=== PATIENT | female | born 1990 | race Caucasian/White ===

== ENCOUNTER 2020-06-09 07:14 | Inpatient (IN) | payer MEDICAID ==
[2020-06-09] MEDS ORDERED: Misoprostol 50 MCG (1/2 of 100 MCG) Tab VAG ONE ×3 (07:23→12:15)
[2020-06-09] MEDS ORDERED: Sodium Chloride 0.9% 10 ML Syringe FLUSH PRN (08:03)
[2020-06-09] MEDS ORDERED: fentaNYL 100 MCG/2 ML SDV IVPUSH PRN (08:03)
[2020-06-09] MEDS ORDERED: ePHEDrine 50 MG/ML SDV IVPUSH PRN (08:03)
[2020-06-09] MEDS ORDERED: Lactated Ringers 1,000 ML IV ONE (08:03)
--- NOTE | 2020-06-09 08:21 | PCM.LDHP ---
L&D History of Present Illness - General Date of Service: 06/09/20 (induction at term) Admit Problem/Dx: Patient Status Order with Admit Dx/Problem 06/09/20 08:03 Patient Status [ADT] Routine Admission Diagnosis/Problem Admission Diagnosis/Problem Source of Information: Patient History Limitations: Reports: No Limitations - History of Present Illness Introduction:: 30 year old who is 40 weeks based on LMP and US. scan equaled dates at 20 weeks. She an positive antigen and her has this antigen, no further testing was required. All babies have been induced, history of shoulder dystocia, low pelvic arch. Lab: GBS neg ABO A pos HIV neg Rubella immune hgb 11.9 PLT 242 - Related Data Allergies/Adverse Reactions: Allergies Allergy/AdvReac Type Severity Reaction Status Date / Time No Known Allergies Allergy Verified 06/09/20 07:29 Home Medications: Home Meds Omeprazole 20 mg PO DAILY 06/09/20 [History] 95/Iron Fum/Folic/Dha [ + Dha Combo Pack] 1 tab PO DAILY 06/09/20 [History] Past Medical History [employer] History: Reports: : 4 Para: 3 LMP (Approximate): (TANISHA 06/09/20) H&P Review of Systems - Review of Systems: Review Of Systems: See Below General: Reports: No Symptoms HEENT: Reports: No Symptoms Pulmonary: Reports: Cough (has she coughs so she doesn't vomit, I'm concerned about viral exposure) Cardiovascular: Reports: No Symptoms Gastrointestinal: Reports: Nausea Genitourinary: Reports: No Symptoms Musculoskeletal: Reports: No Symptoms Skin: Reports: No Symptoms Psychiatric: Reports: Depression, Anxiety Neurological: Reports: No Symptoms Hematologic/Lymphatic: Reports: No Symptoms Immunologic: Reports: No Symptoms L&D Exam - Exam Exam: See Below - OB Specific Contraction Frequency (min): irregular Contraction Intensity: Mild Movement: Active Heart Tones: Present Heart Rate (FHR) Variability: Moderate (6-25 bmp) Presentation: Vertex Estimated Weight: 8 pounds - Farrar Score Farrar Score Cervix Position: Anterior Farrar Score Consistency: Soft Farrar Score Effacement: 51-70% Farrar Score Dilation: 1-2 cm Farrar Score Infant's Station: -2 Farrar Score Total: 8 - Exam General: Alert, Oriented HEENT: PERRLA Neck: Supple Lungs: Normal Respiratory Effort Cardiovascular: Regular Rate, Regular Rhythm Rectal Exam: Normal Exam, Normal Rectal Tone Genitourinary: Normal external exam, Cervical dilitation, Enlarged uterus Back Exam: Normal Inspection, Full Range of Motion Extremities: No Pedal Edema, Normal Capillary Refill Skin: Warm, Dry Neurological: Cranial Nerves Intact Psychiatric: Alert, Normal Affect, Normal Mood - Patient Data Lab Results Last 24 hrs: Laboratory Results - last 24 hr 06/09/20 06/09/20 06/09/20 Range/Units 07:22 07:23 07:35 WBC 10.9 (4.5-11.0) K/uL RBC 4.35 (3.30-5.50) M/uL Hgb 11.9 L (12.0-15.0) g/dL Hct 36.7 (36.0-48.0) % MCV 84 (80-98) fL MCH 27 (27-31) pg MCHC 32 (32-36) % Plt Count 242 (150-400) K/uL Neut % (Auto) 60 (36-66) % Lymph % (Auto) 30 (24-44) % [place] % (Auto) 8 H (2-6) % Eos % (Auto) 1 L (2-4) % Baso % (Auto) 0 (0-1) % Urine Color Yellow (YELLOW) Urine Appearance Cloudy A (CLEAR) Urine pH 5.5 (5.0-8.0) Ur Specific [place] >= 1.030 (1.008-1.030) Urine Protein Negative (NEGATIVE) mg/dL Urine Glucose (UA) Negative (NEGATIVE) mg/dL Urine Ketones Negative (NEGATIVE) mg/dL Urine Occult Blood Moderate H (NEGATIVE) Urine Nitrite Negative (NEGATIVE) Urine Bilirubin Negative (NEGATIVE) Urine Urobilinogen 0.2 (0.2-1.0) EU/dL Ur Leukocyte Esterase Negative (NEGATIVE) Urine RBC 5-10 H (0-5) Urine WBC 5-10 H (0-5) Ur Epithelial Cells Many Amorphous Sediment Not seen Urine Bacteria Moderate Urine Mucus Many Urine Opiates Screen Negative (NEGATIVE) Ur Oxycodone Screen Negative (NEGATIVE) Urine Methadone Screen Negative (NEGATIVE) Ur Propoxyphene Screen Negative (NEGATIVE) Ur Barbiturates Screen Negative (NEGATIVE) Ur Tricyclics Screen Negative (NEGATIVE) Ur Phencyclidine Scrn Negative (NEGATIVE) Ur Amphetamine Screen Negative (NEGATIVE) U Methamphetamines Scrn Negative (NEGATIVE) Urine MDMA Screen Negative (NEGATIVE) U Benzodiazepines Scrn Negative (NEGATIVE) U Cocaine Metab Screen Negative (NEGATIVE) U Marijuana (THC) Screen Negative (NEGATIVE) Result Diagrams: 06/09/20 07:35 - Problem List (1) History of shoulder dystocia in prior SNOMED Code(s): 506107575, 538602767 ICD Code: Z87.59 - PERSONAL HISTORY OF COMP OF PREG, CHLDBRTH AND THE PUERP Status: Acute Current Visit: Yes (2) Encounter for planned induction of labor SNOMED Code(s): 118844939 ICD Code: Z34.90 - ENCNTR FOR SUPRVSN OF NORMAL , UNSP, UNSP TRIMESTER Status: Acute Current Visit: Yes (3) Intrauterine SNOMED Code(s): 47074876 ICD Code: Z34.90 - ENCNTR FOR SUPRVSN OF NORMAL , UNSP, UNSP TRIMESTER Status: Acute Current Visit: Yes Problem List Initiated/Reviewed/Updated: Yes Orders Last 24hrs: Active Orders 24 hr Category Date Time Status Patient Status [ADT] Routine ADT 06/09/20 08:03 Ordered Antiembolic Devices [RC] .Routine Care 06/09/20 08:07 Ordered Communication Order [RC] ASDIRECTED Care 06/09/20 08:04 Ordered Communication Order [RC] ASDIRECTED Care 06/09/20 08:04 Ordered Heart Tones [RC] PER UNIT ROUTINE Care 06/09/20 08:04 Ordered Non Stress Test [RC] Click to Edit Care 06/09/20 08:04 Ordered Insert Urinary Catheter [OM.PC] ASDIRECTED Care 06/09/20 08:15 Ordered Local Anesthetic Infusion Pump [RC] ASDIRECTED Care 06/09/20 08:04 Ordered Notify Provider Vital Signs [RC] PRN Care 06/09/20 08:03 Ordered Notify Provider [RC] PRN Care 06/09/20 08:04 Ordered PCEA Epidural [RC] ASDIRECTED Care 06/09/20 08:04 Ordered PCEA Epidural [RC] ASDIRECTED Care 06/09/20 08:05 Ordered Urinary Catheter Assessment [RC] ASDIRECTED Care 06/09/20 08:05 Ordered VTE/DVT Education [RC] Click to Edit Care 06/09/20 08:07 Ordered Vital Signs [RC] PER UNIT ROUTINE Care 06/09/20 08:04 Ordered Regular Diet [DIET] Diet 06/09/20 Dinner Ordered Lactated Ringers [Ringers, Lactated] 1,000 ml Med 06/09/20 08:03 Ordered IV .BOLUS Oxytocin/Normal Saline [Pitocin in NS 20 Units/1,000 ML Med 06/09/20 08:07 Ordered ] 20 unit in 1,000 ml IV ONETIME Sodium Chloride 0.9% [Saline Flush] Med 06/09/20 08:03 Ordered 10 ml FLUSH ASDIRECTED PRN ePHEDrine [ePHEDrine sulfate] Med 06/09/20 08:03 Ordered 10 mg IVPUSH ASDIRECTED PRN fentaNYL [Sublimaze] Med 06/09/20 08:03 Ordered 100 mcg IVPUSH Q1H PRN DVT/VTE Prophylaxis Reflex [OM.PC] Routine Oth 06/09/20 08:03 Ordered Epidural Catheter Management [OM.PC] Urgent Oth 06/09/20 08:04 Ordered Saline Lock Insert [OM.PC] Routine Oth 06/09/20 08:04 Ordered Resuscitation Status Routine Resus Stat 06/09/20 08:03 Ordered Medication Orders Ephedrine Sulfate (Ephedrine Sulfate) 10 mg IVPUSH ASDIRECTED PRN PRN Reason: Hypotension Fentanyl (Sublimaze) 100 mcg IVPUSH Q1H PRN PRN Reason: Pain (moderate 4-6) Lactated Ringer's (Ringers, Lactated) 1,000 mls @ 999 mls/hr IV .BOLUS ONE Stop: 06/09/20 09:03 Oxytocin/Sodium Chloride (Pitocin In Ns 20 Units/1,000 Ml) 20 unit in 1,000 mls @ 999 mls/hr IV ONETIME ONE; Protocol Stop: 06/09/20 09:07 Sodium Chloride (Saline Flush) 10 ml FLUSH ASDIRECTED PRN PRN Reason: Keep Vein Open Assessment/Plan Comment:: 30 year old 40 weeks IUP, here for planned induction at term, history of shoulder dystocia due to low pelvic arch Plan coughing today, will do rapid Covid test. epidural for pain management, orders placed. monitor for active labor Miso 50 mcg placed at 0800 will reassess at noon.
[2020-06-09] MEDS ORDERED: Ondansetron 4 MG Tab.DIS PO PRN (08:30)
--- NOTE | 2020-06-09 12:28 | PCM.PNLD ---
Labor Progress Note - VS & Meds Vital Signs: Last Vital Signs Temp 97.9 F 06/09/20 10:00 Pulse 101 H 06/09/20 11:30 Resp 18 06/09/20 11:30 BP 124/58 L 06/09/20 11:30 Pulse Ox 97 06/09/20 11:30 Active Medications: Current Medications Ephedrine Sulfate (Ephedrine Sulfate) 10 mg IVPUSH ASDIRECTED PRN PRN Reason: Hypotension Fentanyl (Sublimaze) 100 mcg IVPUSH Q1H PRN PRN Reason: Pain (moderate 4-6) Oxytocin/Sodium Chloride (Pitocin In Ns 20 Units/1,000 Ml) 20 unit in 1,000 mls @ 999 mls/hr IV ONETIME ONE; Protocol Stop: 06/09/20 13:00 Ondansetron HCl (Zofran Odt) 4 mg PO Q4H PRN PRN Reason: Nausea/Vomiting Last Admin: 06/09/20 08:38 Dose: 4 mg Documented by: Sodium Chloride (Saline Flush) 10 ml FLUSH ASDIRECTED PRN PRN Reason: Keep Vein Open Discontinued Medications Lactated Ringer's (Ringers, Lactated) 1,000 mls @ 999 mls/hr IV .BOLUS ONE Stop: 06/09/20 09:03 Last Admin: 06/09/20 12:22 Dose: 999 mls/hr Documented by: Misoprostol (Cytotec) 50 mcg VAG ONETIME ONE Stop: 06/09/20 07:25 Last Admin: 06/09/20 08:16 Dose: 50 mcg Documented by: Misoprostol (Cytotec) 25 mcg VAG ONETIME ONE Stop: 06/09/20 12:16 Last Admin: 06/09/20 12:18 Dose: Not Given Documented by: - Uterine Contractions Uterine Monitoring Mode: External [place] Contraction Frequency (min): 4-5 Contraction Duration (sec): 60-90 Contraction Intensity: Mild Uterine Resting Tone: Soft - Monitoring Heart Rate (FHR) Baseline: 145 Heart Rate (FHR) Variability: Moderate (6-25 bmp) Decelerations: None Strip Review: Category I - Vaginal Exam Dilation (cm): 4 Effacement (Percent): 80 Station: 0 Cervical Position: Anterior Sterile Vaginal Exam Performed By: Nita Gonzalez Vaginal Exam Comment: AROM, meconium - Labor Progress (Free Text) Labor Progress: 1230 CE 4-80-0 bulging bag, AROM pea green meconium cat one strip baseline FHT 145 contractions every 4-6 minutes Plan: augment contractions with pitocin up and about until she needs an epidural plan for vaginal delivery
[2020-06-09] MEDS ORDERED: Acetaminophen 325 MG Tab PO PRN (13:41)
[2020-06-09] MEDS ORDERED: Ropivacaine 100 ML ONE (14:59)
[2020-06-09] MEDS ORDERED: Witch Hazel Medicated Pads 100/Jar TOP ONE (15:59)
[2020-06-09] MEDS ORDERED: Hydrocortisone 2.5% Crm 30 GM Tube TOP PRN (15:59)
[2020-06-09] MEDS ORDERED: Benzocaine 20% Top Spray 56 GM Bottle TOP ONE (15:59)
[2020-06-09] MEDS ORDERED: Acetaminophen 325 MG Tab, 50 Tab Bulk Bottle PO PRN (15:59)
[2020-06-09] MEDS ORDERED: Ibuprofen 200 MG Tab, 24 Tab Bulk Bottle PO PRN (15:59)
--- NOTE | 2020-06-09 16:10 | PCM.DEL ---
L & D Note - General Info Date of Service: 06/09/20 (childbirth) Mother's Due Date: 06/09/20 - Delivery Note Labor: Spontaneous Cervical Ripening Method: Misoprostil Delivery Outcome: Livebirth Delivery Method: Spontaneous Vaginal Delivery-Single Infant Delivery Mode: Spontaneous Presentation: Vertex Nuchal Cord: Present Anesthesia Type: Epidural Amniotic Fluid Description: Meconium Stained Episiotomy Type: Midline Laceration: 1st Degree, Perineal Suture type: Chromic Suture size: 3-0 Placenta: Intact, Spontaneous, Meconium Stained Cord: 3 Vessels Estimated Blood Loss: 400 Resuscitation Needed: Yes [place]: Stimulated, Warmed, [place] Used, Warmer Used Provider: Nita Gonzalez Score 1 min: 4 Score 5 min: 8 Second Stage Interventions: Reports: Second Nurse Reviewed Contraction Pattern, Pushing Effectively, Pushing, McRobert's Position Delivery Comments (Free Text/Narrative):: 06/09/20 This 30 year old G4 now P3 who is 40 weeks delivered at 1511 viable male in OA position after a small episiotomy over the old scar line. Mother was AROM at 1200 and had thick meconium. She progressed quickly to compete at 1450. Pushed for 14 minutes. baby delivered with a tight nuchal cord that i couldn't reduce and was double clamped and cut and bay delivered spontaneously after that. He was blue, floppy and not crying upon delivery. He was taken to the warmer where he was dried and stimulated, He had a HR of 110. PPV via the [place] times 30 second. He started spontaneously respirations and crying. First 4 ; 0-resp,-o-tone, 2 HR, 1 color, 1 crying and second was 8 at 5 minutes. Three vessel cord. The placenta was expressed spontaneously intact and sent to pathology. The episiotomy was repaired in standard fashion with 3-0 vicryl. No lacerations of cervix, vagina, or rectum EBL 400cc Mother and baby to post in stable condition. weight: 8-9 First stage [id number] second stage 9124-1847 Thrid stage [id number] Induction Criteria - Farrar Score Farrar Score Dilation: 1-2 cm Farrar Score Effacement: 60-70% Farrar Score 's Station: -2 Farrar Score Consistency: Soft Farrar Score Cervix Position: Anterior Farrar Score Total: 8 Farrar Score Presenting Part: Reports: Cephalic - Induction Gestational Age >/= 39 wks: Yes Estimated Pelvis: Reports: Adequate Reassuring Monitoring Strip: Yes Absence of Tachy Systole: Yes - General Info Date of Service: 06/09/20 Functional Status: Reports: Pain Controlled - Review of Systems General: Reports: No Symptoms HEENT: Reports: No Symptoms Pulmonary: Reports: No Symptoms Cardiovascular: Reports: No Symptoms Gastrointestinal: Reports: No Symptoms Genitourinary: Reports: No Symptoms Musculoskeletal: Reports: No Symptoms Skin: Reports: No Symptoms Neurological: Reports: No Symptoms Psychiatric: Reports: No Symptoms - Patient Data Vitals - Most Recent: Last Vital Signs Temp 97.9 F 06/09/20 12:15 Pulse 88 06/09/20 12:50 Resp 18 06/09/20 12:50 BP 122/69 06/09/20 12:50 Pulse Ox 96 06/09/20 12:50 Weight - Most Recent: 255 lb Lab Results Last 24 Hours: Laboratory Results - last 24 hr 06/09/20 06/09/20 06/09/20 Range/Units 07:22 07:23 07:35 WBC 10.9 (4.5-11.0) K/uL RBC 4.35 (3.30-5.50) M/uL Hgb 11.9 L (12.0-15.0) g/dL Hct 36.7 (36.0-48.0) % MCV 84 (80-98) fL MCH 27 (27-31) pg MCHC 32 (32-36) % Plt Count 242 (150-400) K/uL Neut % (Auto) 60 (36-66) % Lymph % (Auto) 30 (24-44) % [place] % (Auto) 8 H (2-6) % Eos % (Auto) 1 L (2-4) % Baso % (Auto) 0 (0-1) % Urine Color Yellow (YELLOW) Urine Appearance Cloudy A (CLEAR) Urine pH 5.5 (5.0-8.0) Ur Specific [place] >= 1.030 (1.008-1.030) Urine Protein Negative (NEGATIVE) mg/dL Urine Glucose (UA) Negative (NEGATIVE) mg/dL Urine Ketones Negative (NEGATIVE) mg/dL Urine Occult Blood Moderate H (NEGATIVE) Urine Nitrite Negative (NEGATIVE) Urine Bilirubin Negative (NEGATIVE) Urine Urobilinogen 0.2 (0.2-1.0) EU/dL Ur Leukocyte Esterase Negative (NEGATIVE) Urine RBC 5-10 H (0-5) Urine WBC 5-10 H (0-5) Ur Epithelial Cells Many Amorphous Sediment Not seen Urine Bacteria Moderate Urine Mucus Many Urine Opiates Screen Negative (NEGATIVE) Ur Oxycodone Screen Negative (NEGATIVE) Urine Methadone Screen Negative (NEGATIVE) Ur Propoxyphene Screen Negative (NEGATIVE) Ur Barbiturates Screen Negative (NEGATIVE) Ur Tricyclics Screen Negative (NEGATIVE) Ur Phencyclidine Scrn Negative (NEGATIVE) Ur Amphetamine Screen Negative (NEGATIVE) U Methamphetamines Scrn Negative (NEGATIVE) Urine MDMA Screen Negative (NEGATIVE) U Benzodiazepines Scrn Negative (NEGATIVE) U Cocaine Metab Screen Negative (NEGATIVE) U Marijuana (THC) Screen Negative (NEGATIVE) SARS-CoV-2 RNA (GREG) (NEGATIVE) 06/09/20 Range/Units 08:24 WBC (4.5-11.0) K/uL RBC (3.30-5.50) M/uL Hgb (12.0-15.0) g/dL Hct (36.0-48.0) % MCV (80-98) fL MCH (27-31) pg MCHC (32-36) % Plt Count (150-400) K/uL Neut % (Auto) (36-66) % Lymph % (Auto) (24-44) % [place] % (Auto) (2-6) % Eos % (Auto) (2-4) % Baso % (Auto) (0-1) % Urine Color (YELLOW) Urine Appearance (CLEAR) Urine pH (5.0-8.0) Ur Specific [place] (1.008-1.030) Urine Protein (NEGATIVE) mg/dL Urine Glucose (UA) (NEGATIVE) mg/dL Urine Ketones (NEGATIVE) mg/dL Urine Occult Blood (NEGATIVE) Urine Nitrite (NEGATIVE) Urine Bilirubin (NEGATIVE) Urine Urobilinogen (0.2-1.0) EU/dL Ur Leukocyte Esterase (NEGATIVE) Urine RBC (0-5) Urine WBC (0-5) Ur Epithelial Cells Amorphous Sediment Urine Bacteria Urine Mucus Urine Opiates Screen (NEGATIVE) Ur Oxycodone Screen (NEGATIVE) Urine Methadone Screen (NEGATIVE) Ur Propoxyphene Screen (NEGATIVE) Ur Barbiturates Screen (NEGATIVE) Ur Tricyclics Screen (NEGATIVE) Ur Phencyclidine Scrn (NEGATIVE) Ur Amphetamine Screen (NEGATIVE) U Methamphetamines Scrn (NEGATIVE) Urine MDMA Screen (NEGATIVE) U Benzodiazepines Scrn (NEGATIVE) U Cocaine Metab Screen (NEGATIVE) U Marijuana (THC) Screen (NEGATIVE) SARS-CoV-2 RNA (GREG) Negative (NEGATIVE) Med Orders - Current: Current Medications Acetaminophen (Tylenol) 650 mg PO Q4H PRN PRN Reason: Pain (mild 1-3) Last Admin: 06/09/20 15:57 Dose: 650 mg Documented by: Acetaminophen (Tylenol Bulk Bottle) 0 mg PO Q4H PRN PRN Reason: Pain Benzocaine (Rrvn-O-Qkzuget 20% [place]) 0 gm TOP Q4H ONE Stop: 06/09/20 16:00 Ephedrine Sulfate (Ephedrine Sulfate) 10 mg IVPUSH ASDIRECTED PRN PRN Reason: Hypotension Fentanyl (Sublimaze) 100 mcg IVPUSH Q1H PRN PRN Reason: Pain (moderate 4-6) Hydrocortisone (Proctozone-Hc 2.5% Crm) 1 gm TOP ASDIRECTED PRN PRN Reason: Itching Oxytocin/Sodium Chloride (Pitocin In Ns 20 Units/1,000 Ml) 20 units in 1,000 mls @ 6 mls/hr IV TITRATE ISAIAH; Protocol Last Titration: 06/09/20 13:36 Dose: 3 munits/min, 9 mls/hr Documented by: Ibuprofen (Motrin Bulk Bottle) 600 mg PO Q6H PRN PRN Reason: Pain Ondansetron HCl (Zofran Odt) 4 mg PO Q4H PRN PRN Reason: Nausea/Vomiting Last Admin: 06/09/20 08:38 Dose: 4 mg Documented by: Sodium Chloride (Saline Flush) 10 ml FLUSH ASDIRECTED PRN PRN Reason: Keep Vein Open Witnika Kaiser (Tucks) 1 pad TOP ASDIRECTED ONE Stop: 06/09/20 16:00 Discontinued Medications Lactated Ringer's (Ringers, Lactated) 1,000 mls @ 999 mls/hr IV .BOLUS ONE Stop: 06/09/20 09:03 Last Admin: 06/09/20 12:22 Dose: 999 mls/hr Documented by: Oxytocin/Sodium Chloride (Pitocin In Ns 20 Units/1,000 Ml) 20 unit in 1,000 mls @ 999 mls/hr IV ONETIME ONE; Protocol Stop: 06/09/20 13:00 Last Admin: 06/09/20 15:57 Dose: Not Given Documented by: Ropivacaine (Naropin 0.2%) Confirm Administered Dose 100 mls @ as directed .ROUTE .STK-MED ONE Stop: 06/09/20 15:00 Misoprostol (Cytotec) 50 mcg VAG ONETIME ONE Stop: 06/09/20 07:25 Last Admin: 06/09/20 08:16 Dose: 50 mcg Documented by: Misoprostol (Cytotec) 25 mcg VAG ONETIME ONE Stop: 06/09/20 12:16 Last Admin: 06/09/20 12:18 Dose: Not Given Documented by: - Exam General: Alert, Oriented HEENT: Pupils Equal Neck: Supple Lungs: Clear to Auscultation, Normal Respiratory Effort Cardiovascular: Regular Rate, Regular Rhythm GI/Abdominal Exam: Soft (Female) Exam: Normal External Exam, Enlarged Uterus, Vaginal Bleeding Back Exam: Normal Inspection Extremities: No Pedal Edema, Normal Capillary Refill Skin: Warm Wound/Incisions: Healing Well Psy/Mental Status: Alert, Normal Affect, Normal Mood - Problem List & Annotations (1) History of shoulder dystocia in prior SNOMED Code(s): 982055972, 913140120 Code(s): Z87.59 - PERSONAL HISTORY OF COMP OF PREG, CHLDBRTH AND THE PUERP Status: Acute Current Visit: Yes (2) Encounter for planned induction of labor SNOMED Code(s): 055706300 Code(s): Z34.90 - ENCNTR FOR SUPRVSN OF NORMAL , UNSP, UNSP TRIMESTER Status: Acute Current Visit: Yes (3) Intrauterine SNOMED Code(s): 47500063 Code(s): Z34.90 - ENCNTR FOR SUPRVSN OF NORMAL , UNSP, UNSP TRIMESTER Status: Acute Current Visit: Yes - Problem List Review Problem List Initiated/Reviewed/Updated: Yes - My Orders Last 24 Hours: My Active Orders 06/09/20 08:03 Notify Provider Vital Signs [RC] PRN Sodium Chloride 0.9% [Saline Flush] 10 ml FLUSH ASDIRECTED PRN ePHEDrine [ePHEDrine sulfate] 10 mg IVPUSH ASDIRECTED PRN fentaNYL [Sublimaze] 100 mcg IVPUSH Q1H PRN DVT/VTE Prophylaxis Reflex [OM.PC] Routine Resuscitation Status Routine 06/09/20 08:04 Communication Order [RC] ASDIRECTED Communication Order [RC] ASDIRECTED Non Stress Test [RC] Click to Edit Local Anesthetic Infusion Pump [RC] ASDIRECTED Notify Provider [RC] PRN PCEA Epidural [RC] ASDIRECTED Vital Signs [RC] PER UNIT ROUTINE Epidural Catheter Management [OM.PC] Urgent Saline Lock Insert [OM.PC] Routine 06/09/20 08:05 Urinary Catheter Assessment [RC] ASDIRECTED 06/09/20 08:07 Antiembolic Devices [RC] .Routine VTE/DVT Education [RC] Click to Edit 06/09/20 08:15 Insert Urinary Catheter [OM.PC] ASDIRECTED 06/09/20 08:30 Ondansetron [Zofran ODT] 4 mg PO Q4H PRN 06/09/20 12:30 Oxytocin/Normal Saline [Pitocin in NS 20 Units/1,000 ML] 20 units in 1,000 ml IV TITRATE 06/09/20 13:41 Acetaminophen [TylenoL] 650 mg PO Q4H PRN 06/09/20 15:59 Up ad Emilia [RC] ASDIRECTED Acetaminophen [Tylenol Bulk Bottle] See Dose Instructions PO Q4H PRN Benzocaine [Imfh-J-Dfxyvqu 20% [place]] See Dose Instructions TOP Q4H ONE Hydrocortisone [Proctozone-HC 2.5% Crm] 1 gm TOP ASDIRECTED PRN Ibuprofen [Motrin Bulk Bottle] 600 mg PO Q6H PRN witch Gladis [Tucks] 1 pad TOP ASDIRECTED ONE Assess Lochia [WOMSER] Per Unit Routine Assess Uterine Involution [WOMSER] Per Unit Routine 06/09/20 16:00 Patient Status [ADT] Routine Vital Signs [RC] PFP 06/09/20 16:03 Ice Therapy [OM.PC] Per Unit Routine Perineal Care [OM.PC] Per Unit Routine Sitz Bath [OM.PC] Per Unit Routine 06/09/20 Dinner Regular Diet [DIET] 06/10/20 05:11 CBC WITH AUTO DIFF [HEME] AM - Assessment Assessment:: 06/09/20 30 year old 40 weeks with complications thick meconium resuscitation episiotomy with repair - Plan Plan:: 30 year old 40 weeks IUP, here for planned induction at term, history of shoulder dystocia due to low pelvic arch Plan coughing today, will do rapid Covid test. epidural for pain management, orders placed. monitor for active labor Miso 50 mcg placed at 0800 will reassess at noon. 06/09/20 Routine cares bottle feeding baby so mother can restart her medications 24-48 hour stay
--- NOTE | 2020-06-09 19:38 | ANES ---
DATE OF SERVICE: 06/09/2020 I was called early this afternoon for a young lady requesting a labor epidural. It is her 4th baby. She was wanting me to come in a little after 2 o'clock. I was at the bedside at approximately 1415. A brief history and physical was done with the patient. The patient has had a normal , normal health, overall has not had any blood thinners. Risks and benefits were reviewed with the patient. The patient verbalizes her understanding and wishes to proceed with the labor epidural at this time. The patient was sat at the edge of the bed. Betadine prep x3 to the lumbar region was done. Sterile drape was placed. 1% lidocaine skin wheal and deep was done. A 17-gauge Tuohy needle was inserted at approximately the L3-4 position. Loss of resistance was easily achieved at approximately 7 cm. The catheter was easily threaded through the Touhy needle. The Tuohy needle was withdrawn and catheter was pulled back to approximately 16 cm at the skin. 4 mL test dose was done. Upon securing the catheter, the patient lean forward too far had a sudden jerk movement and pulled the catheter out too far to save the catheter, so the epidural catheter was pulled because it was dislodged to far to be effective. So we had to redo the epidural 2nd time. So a 2nd kit was then retrieved. Again, the patient was sat at the edge of the bed. I was still remaining at the edge of the bed. Betadine prep x3 to the lumbar region was done a 2nd time. Sterile drape was placed. 1% lidocaine skin wheal and deep was done in the same area as previous epidural. A 17-gauge Tuohy needle was inserted in the exact same spot as previously, and again loss of resistance was easily achieved at approximately 7 cm. The catheter was easily threaded through the Touhy needle. The Touhy needle was withdrawn, and then I proceeded to give the patient a 3 mL test dose this 2nd time around. The catheter was then fully secured at 16 cm, and the patient was then laid in supine position with head of bed slightly elevated and left uterine displacement. After several minutes, it was noted that the patient's heart rate remained stable and no sign of a subarachnoid block at this time. I then proceeded to give the patient 12 mL bolus of 0.2% ropivacaine via the epidural and started her on a 0.2% ropivacaine drip at 12 mL an hour. The patient tolerated the procedure without difficulty. Blood pressure was stable throughout the bolus and after the bolus. Please refer to the nurse's notes for vital signs. Prior to leaving, the patient was noted to be complete and ready to push, but I will be available if needed. Colin Villa CRNA /[id number]
[2020-06-10] MEDS ORDERED: Docusate Sodium 100 MG Cap PO PRN (04:00)
--- NOTE | 2020-06-10 08:21 | PCM.PNPP ---
- General Info Date of Service: 06/10/20 Functional Status: Reports: Pain Controlled - Review of Systems General: Reports: No Symptoms HEENT: Reports: No Symptoms Pulmonary: Reports: No Symptoms Cardiovascular: Reports: No Symptoms Gastrointestinal: Reports: No Symptoms Genitourinary: Reports: No Symptoms Musculoskeletal: Reports: No Symptoms Skin: Reports: No Symptoms Neurological: Reports: No Symptoms Psychiatric: Reports: No Symptoms - General Info Date of Service: 06/10/20 - Patient Data Vital Signs - Most Recent: Last Vital Signs Temp 36.6 C 06/10/20 08:09 Pulse 74 06/10/20 08:09 Resp 16 06/10/20 08:09 BP 110/54 L 06/10/20 08:09 Pulse Ox 97 06/10/20 08:09 Weight - Most Recent: 115.666 kg Lab Results - Last 24 Hours: Laboratory Results - last 24 hr 06/09/20 06/10/20 Range/Units 08:24 05:52 WBC 10.8 (4.5-11.0) K/uL RBC 3.94 (3.30-5.50) M/uL Hgb 10.8 L (12.0-15.0) g/dL Hct 33.8 L (36.0-48.0) % MCV 86 (80-98) fL MCH 27 (27-31) pg MCHC 32 (32-36) % Plt Count 215 (150-400) K/uL Neut % (Auto) 60 (36-66) % Lymph % (Auto) 30 (24-44) % [place] % (Auto) 9 H (2-6) % Eos % (Auto) 1 L (2-4) % Baso % (Auto) 0 (0-1) % SARS-CoV-2 RNA (GREG) Negative (NEGATIVE) Med Orders - Current: Current Medications Acetaminophen (Tylenol) 650 mg PO Q4H PRN PRN Reason: Pain (mild 1-3) Last Admin: 06/09/20 15:57 Dose: 650 mg Documented by: Acetaminophen (Tylenol Bulk Bottle) 0 mg PO Q4H PRN PRN Reason: Pain Last Admin: 06/09/20 19:03 Dose: 1 bottle Documented by: Docusate Sodium (Colace) 100 mg PO BID PRN PRN Reason: Constipation Last Admin: 06/10/20 05:01 Dose: 100 mg Documented by: Ephedrine Sulfate (Ephedrine Sulfate) 10 mg IVPUSH ASDIRECTED PRN PRN Reason: Hypotension Fentanyl (Sublimaze) 100 mcg IVPUSH Q1H PRN PRN Reason: Pain (moderate 4-6) Hydrocortisone (Proctozone-Hc 2.5% Crm) 1 gm TOP ASDIRECTED PRN PRN Reason: Itching Oxytocin/Sodium Chloride (Pitocin In Ns 20 Units/1,000 Ml) 20 units in 1,000 mls @ 6 mls/hr IV TITRATE ISAIAH; Protocol Last Titration: 06/09/20 13:36 Dose: 3 munits/min, 9 mls/hr Documented by: Ibuprofen (Motrin Bulk Bottle) 600 mg PO Q6H PRN PRN Reason: Pain Last Admin: 06/09/20 19:03 Dose: 1 bottle Documented by: Ondansetron HCl (Zofran Odt) 4 mg PO Q4H PRN PRN Reason: Nausea/Vomiting Last Admin: 06/09/20 08:38 Dose: 4 mg Documented by: Sodium Chloride (Saline Flush) 10 ml FLUSH ASDIRECTED PRN PRN Reason: Keep Vein Open Discontinued Medications Benzocaine (Pzzo-D-Gjgofku 20% [place]) 0 gm TOP Q4H ONE Stop: 06/09/20 16:00 Last Admin: 06/09/20 19:02 Dose: 1 bottle Documented by: Lactated Ringer's (Ringers, Lactated) 1,000 mls @ 999 mls/hr IV .BOLUS ONE Stop: 06/09/20 09:03 Last Admin: 06/09/20 12:22 Dose: 999 mls/hr Documented by: Oxytocin/Sodium Chloride (Pitocin In Ns 20 Units/1,000 Ml) 20 unit in 1,000 mls @ 999 mls/hr IV ONETIME ONE; Protocol Stop: 06/09/20 13:00 Last Admin: 06/09/20 15:57 Dose: Not Given Documented by: Ropivacaine (Naropin 0.2%) Confirm Administered Dose 100 mls @ as directed .ROUTE .STK-MED ONE Stop: 06/09/20 15:00 Misoprostol (Cytotec) 50 mcg VAG ONETIME ONE Stop: 06/09/20 07:25 Last Admin: 06/09/20 08:16 Dose: 50 mcg Documented by: Misoprostol (Cytotec) 25 mcg VAG ONETIME ONE Stop: 06/09/20 12:16 Last Admin: 06/09/20 12:18 Dose: Not Given Documented by: Leticia Carter) 1 pad TOP ASDIRECTED ONE Stop: 06/09/20 16:00 Last Admin: 06/09/20 19:02 Dose: 1 bottle Documented by: - Interaction Infant Disposition, : [place] in Room with Family Infant Interaction: Holding Feeding: Bottle Fed Support Person: - Recovery Exam Fundal Tone: Firm Fundal Level: 1 Fingerbreadths Below Umbilicus Fundal Placement: Midline Lochia Amount: Moderate Lochia Color: Rubra/Red Perineum Description: Intact, Minimal Bruising/Swelling Episiotomy/Laceration: Approximated Bladder Status: Nonpalpable Urinary Elimination: Voided - Exam General: Alert, Oriented HEENT: Pupils Equal, Pupils Reactive, Mucous Membr. Moist/[place] Neck: Supple Lungs: Clear to Auscultation, Normal Respiratory Effort Cardiovascular: Regular Rate, Regular Rhythm GI/Abdominal Exam: Normal Bowel Sounds, Soft, Non-Tender, No Organomegaly, Pelvis Stable Extremities: Normal Inspection, Normal Range of Motion, Non-Tender, No Pedal Edema, Normal Capillary Refill Skin: Warm, Dry, Intact Neurological: No New Focal Deficit Psy/Mental Status: Alert, Normal Affect, Normal Mood - Problem List & Annotations (1) History of episiotomy SNOMED Code(s): 392890789 Code(s): Z98.890 - OTHER SPECIFIED POSTPROCEDURAL STATES Status: Acute Current Visit: Yes (2) Encounter for planned induction of labor SNOMED Code(s): 715480555 Code(s): Z34.90 - ENCNTR FOR SUPRVSN OF NORMAL , UNSP, UNSP TRI MESTER Status: Acute Current Visit: Yes (3) History of shoulder dystocia in prior SNOMED Code(s): 745211533, 367822660 Code(s): Z87.59 - PERSONAL HISTORY OF COMP OF PREG, CHLDBRTH AND THE PUERP Status: Acute Current Visit: Yes (4) Intrauterine SNOMED Code(s): 44119455 Code(s): Z34.90 - ENCNTR FOR SUPRVSN OF NORMAL , UNSP, UNSP TRIMESTER Status: Acute Current Visit: Yes (5) Meconium passage during delivery affecting fetus or SNOMED Code(s): 286344237 Code(s): P03.82 - MECONIUM PASSAGE DURING DELIVERY Status: Acute Current Visit: Yes (6) Vaginal delivery SNOMED Code(s): 265220868 Code(s): O80 - ENCOUNTER FOR FULL-TERM UNCOMPLICATED DELIVERY Status: Acute Current Visit: Yes - Problem List Review Problem List Initiated/Reviewed/Updated: Yes - Assessment Assessment:: 06/09/20 30 year old 40 weeks with complications// thick meconium resuscitation episiotomy with repair 06/10/20 PP day 1, no complications Bottle feeding FF and bleeding light AVSS, Hgb 10.8 - Plan Plan:: 30 year old 40 weeks IUP, here for planned induction at term, history of shoulder dystocia due to low pelvic arch Plan coughing today, will do rapid Covid test. epidural for pain management, orders placed. monitor for active labor Miso 50 mcg placed at 0800 will reassess at noon. 06/09/20 Routine cares bottle feeding baby so mother can restart her medications 24-48 hour stay 06/10/20 Routine pp cares and education Bottle feeding education Restart [place]der[place] Discharge home after 24 hours
== END 2020-06-10 15:37 | disposition home or self-care (01) | DRG 807 ==
LOC: JP.OB 07:14 → OBSVTOIN 15:11 → JP.OB 15:11 → JP.MS 15:20
PROVIDERS: ADMIT Nurse Practitioner Family; ATTEND Nurse Practitioner Family
PROC: 10E0XZZ Delivery of Products of Conception, External Approach (ICD-10-PCS; principal; 2020-06-09)
PROC: 3E0P7VZ Introduction of Hormone into Female Reproductive, Via Natural or Artificial Opening (ICD-10-PCS; 2020-06-09)
PROC: 3E0R3BZ Introduction of Anesthetic Agent into Spinal Canal, Percutaneous Approach (ICD-10-PCS; 2020-06-09)
PROC: 0W8NXZZ Division of Female Perineum, External Approach (ICD-10-PCS; 2020-06-09)
PROC: 10907ZC Drainage of Amniotic Fluid, Therapeutic from Products of Conception, Via Natural or Artificial Opening (ICD-10-PCS; 2020-06-09)
PROC: 00HU33Z Insertion of Infusion Device into Spinal Canal, Percutaneous Approach (ICD-10-PCS; 2020-06-09)
DX: O48.0 Post-term pregnancy (principal); Z37.0 Single live birth; Z3A.40 40 weeks gestation of pregnancy; O77.0 Labor and delivery complicated by meconium in amniotic fluid; O69.1XX0 Labor and delivery complicated by cord around neck, with compression, not applicable or unspecified; Z20.828 Contact with and (suspected) exposure to other viral communicable diseases
CPT/HCPCS: 36415; 51702; 59409; 80305-QW; 81001; 85025; A9270-GY; J2590; J2795; J7120; U0002